=== PATIENT | male | born 1985 | race Caucasian/White ===

== ENCOUNTER 2022-12-29 16:54 | Emergency (ER) | payer OTHER ==
[~2022-12-29] VITALS: Ht 182.9 cm; Wt 83.9 kg
[2022-12-29] MEDS ORDERED: BACTRIM DS TAB1 EACH PO (18:07)
[2022-12-29 18:24] VITALS: BP 127/80
== END 2022-12-29 18:25 | disposition home or self-care (01) ==
LOC: ED 16:54
DX: L03.116 Cellulitis of left lower limb (principal)
CPT/HCPCS: 36415; 80053; 85025; 99283; A9270